=== PATIENT | female | born 1950 | race Caucasian/White ===

== ENCOUNTER 2018-10-13 22:38 | Emergency (ER) | payer OTHER ==
[2018-10-13] MEDS ORDERED: AZITHROMYCIN 250 MG TABLET PO ONE ×2 (22:46→23:47)
[2018-10-13 22:47] VITALS: BP 149/89; PULSE 65; TEMP 97.7; BMI 23.3
[2018-10-13] MEDS ORDERED: ALBUTEROL SO4 0.083% IH SOL 2.5 MG/3 ML VIAL.NEB. NEB ONE ×2 (22:58→23:00)
[2018-10-13] MEDS ORDERED: LORATADINE 10 MG TABLET PO ONE (22:59)
[2018-10-13] MEDS ORDERED: LORATADINE 10 MG TABLET ONE (23:00)
[2018-10-13] MEDS ORDERED: ACETAMINOPHEN 325 MG TABLET (FP) PO ONE ×2 (23:02→23:07)
[2018-10-13] MEDS ORDERED: ACETAMINOPHEN 325 MG TABLET (FP) ONE (23:07)
--- NOTE | 2018-10-13 23:07 | PDOC ---
History of Present Illness - General Chief Complaint: Pain, Acute Stated Complaint: CHEST AND BACK PAIN X 1 WEEK Time Seen by Provider: 10/13/18 22:41 History Source: Patient Exam Limitations: No Limitations - History of Present Illness Initial Comments: 10/13/18 23:03 67 year old female with history of HTN, HLD, ?NPH p/w chest tightness and congestion x 2 weeks. Pt reports that she feels the need to clear phlegm from her chest. Denies exertional component. The patient has developed chest discomfort, but now with more cough. No fevers, chills. States was seen in urgent care 1 week ago. Was diagnosed as viral bronchitis and given a prescription for albuterol and methylprednisone. However, pt reports minimal improvement. Came in because symptoms were persistent. Past History - Past Medical History Allergies/Adverse Reactions: Allergies Allergy/AdvReac Type Severity Reaction Status Date / Time No Known Allergies Allergy Verified 10/13/18 22:39 Home Medications: Ambulatory Orders Acetaminophen [Tylenol] 650 mg PO Q4H PRN #20 tablet 10/14/18 Azithromycin 250 mg PO DAILY #4 tablet 10/14/18 COPD: No HTN: Yes Hypercholesterolemia: Yes - Suicide/Smoking/Psychosocial Hx Smoking History: Never smoked Have you smoked in the past 12 months: No Information on smoking cessation initiated: No Hx Alcohol Use: No Drug/Substance Use Hx: No Review of Systems - Review of Systems Able to Perform ROS?: Yes Comments:: 10/13/18 23:11 GENERAL/CONSTITUTIONAL: [No fever or chills. No weakness. No weight change.] HEAD, EYES, EARS, NOSE AND THROAT: [No change in vision. No ear pain or discharge. No sore throat.] CARDIOVASCULAR: [No chest pain or shortness of breath.] RESPIRATORY: [No wheezing, or hemoptysis.] + chest tightness, cough GASTROINTESTINAL: [No nausea, vomiting, diarrhea or constipation. No rectal bleeding.] GENITOURINARY: [No dysuria, frequency, or change in urination.] MUSCULOSKELETAL: [No joint or muscle swelling or pain. No neck or back pain.] SKIN AND BREASTS: [No rash or easy bruising.] NEUROLOGIC: [No headache, vertigo, loss of consciousness, or loss of sensation.] PSYCHIATRIC: [No depression or anxiety.] ENDOCRINE: [No increased thirst. No abnormal weight change.] HEMATOLOGIC/LYMPHATIC: [No anemia, easy bleeding, or history of blood clots.] ALLERGIC/IMMUNOLOGIC: [No hives or skin allergy. No latex allergy.] *Physical Exam - Vital Signs Last Vital Signs Temp Pulse Resp BP Pulse Ox 97.7 F 65 16 149/89 100 10/13/18 22:41 10/13/18 22:41 10/13/18 22:41 10/13/18 22:41 10/13/18 22:41 - Physical Exam Comments: 10/13/18 23:11 GENERAL: Awake, alert, and fully oriented, in no acute distress HEAD: No signs of trauma EYES: EOMI, sclera anicteric, conjunctiva clear ENT: Auricles normal inspection, hearing grossly normal, nares patent, Moist mucosa NECK: Normal ROM, supple,s LUNGS: Breath sounds equal, clear to auscultation bilaterally. No wheezes, and no crackles HEART: Regular rate and rhythm, normal S1 and S2, no murmurs, rubs or gallopsasses EXTREMITIES: Normal range of motion, no edema. No clubbing or cyanosis. No cords, erythema, or tenderness NEUROLOGICAL: Cranial nerves II through XII grossly intact. Normal speech, normal gait SKIN: Warm, Dry, normal turgor, no rashes or lesions noted. Heart Score/ECG Review #1 ECG reviewed & interpreted by me at: 22:45 10/13/18 23:13 NSR 73, no std/charmaine, normal axis, normal intervals, QTC 453 msec ED Treatment Course - LABORATORY CBC & Chemistry Diagram: 10/13/18 23:05 10/13/18 23:05 - RADIOLOGY Radiology Studies Ordered: Category Date Time Status CHEST X-RAY PORTABLE* [RAD] Stat Radiology 10/13/18 22:41 Taken - Medications Given in the ED: ED Medications Discontinued Medications Generic Name Dose Route Start Last Admin Trade Name Freq PRN Reason Stop Dose Admin Azithromycin 500 mg 10/13/18 22:46 10/13/18 22:50 Zithromax - PO 10/13/18 22:47 Not Given ONCE ONE Medical Decision Making - Medical Decision Making 10/13/18 23:12 Vital Signs Temp Pulse Resp BP Pulse Ox 97.7 F 65 16 149/89 100 10/13/18 22:41 10/13/18 22:41 10/13/18 22:41 10/13/18 22:41 10/13/18 22:41 Patient's coughing comfortably throughout my exam. I suspect patient has persistent bronchitis that may require antibiotics. The chest x-ray reviewed by me pending official radiology read but suggests no infiltrates. EKG is normal and without abnormalities. I have low suspicion for ACS. We will send one troponin. We'll obtain labs including white blood cell count. If the workup is unremarkable, I feel comfortable discharging patient home as persistent bronchitis with a prescription of azithromycin. Trial albuterol here. 10/14/18 00:52 CBC, BMP 10/13/18 23:05 10/13/18 23:05 CMP Sodium 135 mmol/L (136-145) L 10/13/18 23:05 Potassium 2.7 mmol/L (3.5-5.1) L* 10/13/18 23:05 Chloride 94 mmol/L (98-107) L 10/13/18 23:05 Carbon Dioxide 32 mmol/L (21-32) 10/13/18 23:05 Anion Gap 9 MMOL/L (8-16) 10/13/18 23:05 BUN 10 mg/dl (7-18) 10/13/18 23:05 Creatinine 0.7 mg/dl (0.55-1.3) 10/13/18 23:05 Creat Clearance w eGFR 83.98 (>60) 10/13/18 23:05 Random Glucose 93 mg/dl (74-106) 10/13/18 23:05 Calcium 9.3 mg/dl (8.5-10) 10/13/18 23:05 Magnesium 1.7 mg/dL (1.8-2.4) L 10/13/18 23:05 Total Bilirubin 0.5 mg/dl (0.2-1) 10/13/18 23:05 AST 22 U/L (15-37) 10/13/18 23:05 ALT 24 U/L (13-61) 10/13/18 23:05 Alkaline Phosphatase 66 U/L (45-117) 10/13/18 23:05 Troponin I < 0.03 ng/ml (0.00-0.05) 10/13/18 23:05 Total Protein 6.8 g/dl (6.4-8.2) 10/13/18 23:05 Albumin 3.9 g/dl (3.4-5.0) 10/13/18 23:05 Chest xray reviewed by me, pending official radiology read. No infiltrates. Pt symptoms improved drastically with nebulized saline and one albuterol. Pt feels much better. Given 2 weeks of symptoms, azithromycin initiated for bronchitis. Incidentally, noted to have potassium of 2.7 and Magnesium of 1.7. Potassium and magnesium repleted. If repeat potassium is improved and >= 3.0, then pt can be d/c'd home with PMD followup. Return precautions given. *DC/Admit/Observation/Transfer Diagnosis at time of Disposition: Bronchitis - Discharge Dispostion Disposition: HOME Condition at time of disposition: Stable Decision to Admit order: No - Prescriptions Prescriptions: Acetaminophen [Tylenol] 650 mg PO Q4H PRN #20 tablet PRN Reason: Pain Azithromycin 250 mg PO DAILY #4 tablet - Referrals - Patient Instructions Printed Discharge Instructions: Acute Bronchitis (Alternative Therapy), DI for Acute Bronchitis Additional Instructions: Please finish taking your antibiotics (azithromycin) until completion. A previous doctor had given you albuterol. You may use 2 puffs of albuterol every 4 hours as needed. Please buy a humidifier and use it. It will help with your coughing. Drink plenty of fluids and rest. You may take 650 mg tylenol every 4 hours as needed for pain. Please follow up with your doctor. If you have uncontrollable chest pain or difficulty breathing, please return to the ER. - Post Discharge Activity
[2018-10-13 23:23] LABS: BASO % 0.4 % (0-2.0); EOS % 3.4 % (0-4.5); HEMATOCRIT 32.8 % (32.4-45.2); HEMOGLOBIN 11.2 GM/dl (10.7-15.3); LYMPH % 30.3 % (8-40); MCH 30.5 pg (25.7-33.7); MCHC 34.3 g/dl (32.0-36.0); MEAN CELL VOLUME 88.9 fl (80-96); MEAN PLT VOLUME 6.4 fl (7.5-11.1); MONO % 13.8 % (3.8-10.2); NEUT % 52.1 % (42.8-82.8); PLATELET COUNT 289 K/MM3 (134-434); RBC 3.69 M/mm3 (3.60-5.2); RDW 12.4 % (11.6-15.6); WHITE BLOOD COUNT 5.9 K/mm3 (4.0-10.8)
[2018-10-13 23:30] LABS: ALBUMIN 3.9 g/dl (3.4-5.0); ALK PHOS 66 U/L (45-117); ANION GAP 9 MMOL/L (8-16); BILIRUBIN,TOTAL 0.5 mg/dl (0.2-1); BLOOD UREA NITROGEN 10 mg/dl (7-18); CALCIUM 9.3 mg/dl (8.5-10); CHLORIDE 94 mmol/L (98-107); CO2 32 mmol/L (21-32); CREATININE 0.7 mg/dl (0.55-1.3); GLUCOSE,RANDOM 93 mg/dl (74-106); MAGNESIUM 1.7 mg/dL (1.8-2.4); SGOT/AST 22 U/L (15-37); SGPT/ALT 24 U/L (13-61); SODIUM 135 mmol/L (136-145); TOT PROT 6.8 g/dl (6.4-8.2)
[2018-10-13 23:32] LABS: POTASSIUM 2.7 mmol/L (3.5-5.1)
[2018-10-13] MEDS ORDERED: POTASSIUM CHLORIDE TABS 20 MEQ TABLET.ER (FP) PO ONE ×2 (23:33→23:35)
[2018-10-13] MEDS ORDERED: MAGNESIUM SULF 50% (8.12 MEQ/2 ML-1 GM VIAL) IVPB ONE (23:47)
[2018-10-14] MEDS ORDERED: MAGNESIUM SULF 50% (8.12 MEQ/2 ML-1 GM VIAL) ONE (00:04)
[2018-10-14] MEDS ORDERED: AZITHROMYCIN 250 MG TABLET ONE (00:04)
[2018-10-14 02:09] LABS: ANION GAP 8 MMOL/L (8-16); BLOOD UREA NITROGEN 10 mg/dL (7-18); CALCIUM 8.7 mg/dL (8.5-10.1); CHLORIDE 97 mmol/L (98-107); CO2 33 mmol/L (21-32); CREATININE 0.7 mg/dL (0.55-1.3); GLUCOSE,RANDOM 101 mg/dL (74-106); MAGNESIUM 2.7 mg/dL (1.8-2.4); SODIUM 137 mmol/L (136-145)
--- NOTE | 2018-10-15 15:03 | EKG ---
Test Reason : Blood Pressure : / mmHG Vent. Rate : 073 BPM Atrial Rate : 073 BPM P-R Int : 158 ms QRS Dur : 088 ms QT Int : 412 ms P-R-T Axes : 049 012 037 degrees QTc Int : 453 ms NORMAL SINUS RHYTHM NORMAL ECG NO PREVIOUS ECGS AVAILABLE Confirmed by MD Fred, Ricardo ([id number]) on 10/15/2018 3:03:16 PM Referred By: JOSE J Confirmed By:Ricardo Ibarra MD
== END 2018-10-14 02:22 | disposition home or self-care (01) ==
LOC: FER 22:38
PROC: 3E0F7GC Introduction of Other Therapeutic Substance into Respiratory Tract, Via Natural or Artificial Opening (ICD-10-PCS; principal; 2018-10-13)
PROC: 3E033GC Introduction of Other Therapeutic Substance into Peripheral Vein, Percutaneous Approach (ICD-10-PCS; 2018-10-13)
DX: J40 Bronchitis, not specified as acute or chronic (principal); I10 Essential (primary) hypertension; E78.00 Pure hypercholesterolemia, unspecified
CPT/HCPCS: 36415; 71045-TC-FY; 80048; 80053; 83735; 84484; 85025; 93005; 99282-25